=== PATIENT | female | born 1990 | race Caucasian/White ===

== ENCOUNTER 2016-11-03 09:23 | Emergency (ER) | payer OTHER ==
[2016-11-03] MEDS ORDERED: ACETAMINOPHEN TAB 500 MG TAB PO STA (09:53)
[2016-11-03] MEDS ORDERED: IBUPROFEN 600 MG TAB PO STA (09:53)
[2016-11-03] MEDS ORDERED: SODIUM CHLORIDE 0.9% 2,000 ML IV STA (09:53)
--- NOTE | 2016-11-03 10:02 | ED ---
Fever HPI - General Chief Complaint: Fever Stated Complaint: Right Flank Pain Time Seen by Provider: 11/03/16 09:48 Source: patient, RN notes reviewed Mode of arrival: ambulatory Limitations: no limitations - History of Present Illness Initial Comments: 26 yo female presents to the ER with cc of fever and abdominal pain. Patient states that last night show some abdominal cramping. Patient states and she started just feels very ill and have a mild fever. Patient states he has noticed some burning with urination. Patient states she does have a history of a renal cysts and has had an infection and therefore that lead to sepsis. Patient states she was concerned due to her low-grade fever with abdominal pain with the dysuria so she thought that she should be evaluated. Patient denies any nausea or vomiting with this. Patient denies any cough cold diagnosed. Patient states that she was concerned due to the abdominal that she should be evaluated. Patient denies any recent shortness of breath, chest pain, back pain , nausea vomiting, numbness or tingling, hematuria, constipation or diarrhea, headaches or visual changes, or any other current symptoms. - Related Data Home Medications Medication Instructions Recorded Confirmed Dextroamphetamine/Amphetamine 20 mg PO BID 11/03/16 11/03/16 [Adderall] Previous Rx's Medication Instructions Recorded Cephalexin [Keflex] 500 mg PO Q6HR #40 cap 11/03/16 Allergies Allergy/AdvReac Type Severity Reaction Status Date / Time No Known Allergies Allergy Verified 11/03/16 10:51 Review of Systems ROS Statement: Those systems with pertinent positive or pertinent negative responses have been documented in the HPI. ROS Other: All systems not noted in ROS Statement are negative. Past Medical History Additional Past Medical History / Comment(s): kidney infection, kidney mass, anemia, uterus idenomyosis History of Any Multi-Drug Resistant Organisms: None Reported Past Surgical History: No Surgical Hx Reported Past Psychological History: ADD/ADHD Smoking Status: Never smoker Past Alcohol Use History: Occasional Past Drug Use History: None Reported General Exam - General Exam Comments Initial Comments: General: The patient is awake and alert, in no distress, and does not appear acutely ill. Eye: Pupils are equal, round and reactive to light, extra-ocular movements are intact; there is normal conjunctiva bilaterally. No signs of icterus. Ears, nose, mouth and throat: There are moist mucous membranes. Neck: The neck is supple, there is no tenderness. Cardiovascular: There is a regular rate and rhythm. No murmur, rub or gallop is appreciated. Respiratory: Lungs are clear to auscultation, respirations are non-labored, breath sounds are equal. No wheezes, stridor, rales, or rhonchi. Gastrointestinal: Soft, non-distended, minimal right-sided abdomen without masses or organomegaly noted. There is no rebound or guarding present. Bilateral CVA tenderness. Bowel sounds are unremarkable. Back: There is no tenderness to palpation in the midline. There is no obvious deformity. No rashes noted. Musculoskeletal: Normal ROM, no tenderness, There is no pedal edema. There is no calf tenderness or swelling. Sensation intact. Pulses equal bilaterally 2+. Neurological: CN II-XII intact, There are no obvious motor or sensory deficits. Coordination appears grossly intact. Speech is normal. Skin: Skin is warm and dry and no rashes or lesions are noted. Psychiatric: Cooperative, appropriate mood & affect, normal judgment. Limitations: no limitations Course Vital Signs 11/03/16 11/03/16 09:30 11:12 Temperature 98.8 F 97.7 F Pulse Rate 83 80 Respiratory 20 18 Rate Blood Pressure 107/64 108/64 O2 Sat by Pulse 99 100 Oximetry Medical Decision Making - Medical Decision Making 26-year-old male presents for low-grade fever and burning seen with urination. This time patient's urine is positive for an infection on initial evaluation. This time there is suspicion for pyloric due to the fact of the patient's pain. Patient has had no nausea vomiting patient is afebrile here in the emergency department. At this time we did discuss discharged home. We did give her IV antibiotics prior to discharge and was started on Keflex for home. We did discuss follow-up with her doctor and return parameters and all questions she stated she understood and she agrees with the plan. She will be discharged. - Lab Data Result diagrams: 11/03/16 09:59 11/03/16 09:59 Lab Results 11/03/16 11/03/16 11/03/16 Range/Units 09:38 09:38 09:59 WBC (3.8-10.6) k/uL RBC (3.80-5.40) m/uL Hgb (11.4-16.0) gm/dL Hct (34.0-46.0) % MCV (80.0-100.0) fL MCH (25.0-35.0) pg MCHC (31.0-37.0) g/dL RDW (11.5-15.5) % Plt Count (150-450) k/uL Neutrophils % % Lymphocytes % % Monocytes % % Eosinophils % % Basophils % % Neutrophils # (1.3-7.7) k/uL Lymphocytes # (1.0-4.8) k/uL Monocytes # (0-1.0) k/uL Eosinophils # (0-0.7) k/uL Basophils # (0-0.2) k/uL Sodium 139 (137-145) mmol/L Potassium 3.7 (3.5-5.1) mmol/L Chloride 107 (98-107) mmol/L Carbon Dioxide 22 (22-30) mmol/L Anion Gap 10 mmol/L BUN 5 L (7-17) mg/dL Creatinine 0.68 (0.52-1.04) mg/dL Est GFR (MDRD) Af Amer >60 (>60 ml/min/1.73 sqM) Est GFR (MDRD) Non-Af >60 (>60 ml/min/1.73 sqM) Glucose 89 (74-99) mg/dL Plasma Lactic Acid Eduardo (0.7-2.0) mmol/L Calcium 8.8 (8.4-10.2) mg/dL Total Bilirubin 0.6 (0.2-1.3) mg/dL AST 17 (14-36) U/L ALT 21 (9-52) U/L Alkaline Phosphatase 45 (38-126) U/L Total Protein 6.4 (6.3-8.2) g/dL Albumin 3.7 (3.5-5.0) g/dL Amylase 32 (30-110) U/L Lipase 92 (23-300) U/L Urine Color Yellow Urine Appearance Cloudy H (Clear) Urine pH 5.5 (5.0-8.0) Ur Specific [place] 1.010 (1.001-1.035) Urine Protein 1+ H (Negative) Urine Glucose (UA) Negative (Negative) Urine Ketones Negative (Negative) Urine Blood Moderate H (Negative) Urine Nitrite Positive H (Negative) Urine Bilirubin Negative (Negative) Urine Urobilinogen <2.0 (<2.0) mg/dL Ur Leukocyte Esterase Large H (Negative) Urine RBC 17 H (0-5) /hpf Urine WBC >182 H (0-5) /hpf Urine WBC Clumps Few H (None) /hpf Ur Squamous Epith Cells 2 (0-4) /hpf Urine Bacteria Rare H (None) /hpf Urine HCG, Qual Not Detected (Not Detectd) 11/03/16 11/03/16 Range/Units 09:59 09:59 WBC 12.8 H (3.8-10.6) k/uL RBC 4.09 (3.80-5.40) m/uL Hgb 12.7 (11.4-16.0) gm/dL Hct 36.7 (34.0-46.0) % MCV 89.5 (80.0-100.0) fL MCH 31.0 (25.0-35.0) pg MCHC 34.6 (31.0-37.0) g/dL RDW 12.3 (11.5-15.5) % Plt Count 228 (150-450) k/uL Neutrophils % 84 % Lymphocytes % 10 % Monocytes % 4 % Eosinophils % 1 % Basophils % 0 % Neutrophils # 10.7 H (1.3-7.7) k/uL Lymphocytes # 1.3 (1.0-4.8) k/uL Monocytes # 0.6 (0-1.0) k/uL Eosinophils # 0.1 (0-0.7) k/uL Basophils # 0.0 (0-0.2) k/uL Sodium (137-145) mmol/L Potassium (3.5-5.1) mmol/L Chloride (98-107) mmol/L Carbon Dioxide (22-30) mmol/L Anion Gap mmol/L BUN (7-17) mg/dL Creatinine (0.52-1.04) mg/dL Est GFR (MDRD) Af Amer (>60 ml/min/1.73 sqM) Est GFR (MDRD) Non-Af (>60 ml/min/1.73 sqM) Glucose (74-99) mg/dL Plasma Lactic Acid Eduardo 0.9 (0.7-2.0) mmol/L Calcium (8.4-10.2) mg/dL Total Bilirubin (0.2-1.3) mg/dL AST (14-36) U/L ALT (9-52) U/L Alkaline Phosphatase (38-126) U/L Total Protein (6.3-8.2) g/dL Albumin (3.5-5.0) g/dL Amylase (30-110) U/L Lipase (23-300) U/L Urine Color Urine Appearance (Clear) Urine pH (5.0-8.0) Ur Specific [place] (1.001-1.035) Urine Protein (Negative) Urine Glucose (UA) (Negative) Urine Ketones (Negative) Urine Blood (Negative) Urine Nitrite (Negative) Urine Bilirubin (Negative) Urine Urobilinogen (<2.0) mg/dL Ur Leukocyte Esterase (Negative) Urine RBC (0-5) /hpf Urine WBC (0-5) /hpf Urine WBC Clumps (None) /hpf Ur Squamous Epith Cells (0-4) /hpf Urine Bacteria (None) /hpf Urine HCG, Qual (Not Detectd) - Radiology Data Radiology results: report reviewed, image reviewed Disposition Clinical Impression: Left renal mass, Pyelonephritis Disposition: HOME SELF-CARE Condition: Stable Instructions: Kidney Infection (ED) Additional Instructions: Please use medication as discussed. Please follow up with family doctor if symptoms have not improved over the next two days. Please return to the emergency room if your symptoms increase or worsen or for any other concerns. Prescriptions: Cephalexin [Keflex] 500 mg PO Q6HR #40 cap Referrals: Wilfredo Simons MD [Primary Care Provider] - 1-2 days Time of Disposition: 12:07
[2016-11-03 10:13] LABS: Appearance,Urine Cloudy (Clear); Bacteria,Urine Rare /hpf; Bilirubin,Urine Negative (Negative); Glucose,Urine (UA) Negative (Negative); Ketones,Urine Negative (Negative); Leukocyte Esterase,Urine Large (Negative); Nitrite,Urine Positive (Negative); PH, Urine 5.5 (5.0-8.0); Particle Count 6476; Protein,Urine 1+ (Negative); RBC,Urine 17 /hpf (0-5); Squamous Epithelial Cell,Urine 2 /hpf (0-4); UA Billing (MACRO vs. MICRO) MICRO; Urobilinogen,Urine <2.0 mg/dL (<2.0); WBC,Urine >182 /hpf (0-5)
[2016-11-03 10:13] LABS: Basophils % (A) 0 %; CH 30.6; CHCM 34.3; Eosinophils # (A) 0.1 k/uL (0-0.7); Eosinophils % (A) 1 %; HCT 36.7 % (34.0-46.0); HDW 2.36; HGB 12.7 gm/dL (11.4-16.0); Luc # (Auto) 0.08; Luc % (Auto) 1; Lymphocytes # (A) 1.3 k/uL (1.0-4.8); Lymphocytes % (A) 10 %; MCHC 34.6 g/dL (31.0-37.0); MCV 89.5 fL (80.0-100.0); Mean Platelet Volume 7.5; Monocytes # (A) 0.6 k/uL (0-1.0); Monocytes % (A) 4 %; Neutrophils # (A) 10.7 k/uL (1.3-7.7); Neutrophils % (A) 84 %; RBC 4.09 m/uL (3.80-5.40); RDW 12.3 % (11.5-15.5); WBC 12.8 k/uL (3.8-10.6); WBC (Perox) 12.09
[2016-11-03 10:25] LABS: ALT 21 U/L (9-52); AST 17 U/L (14-36); Alkaline Phosphatase 45 U/L (38-126); Amylase 32 U/L (30-110); Anion Gap 10 mmol/L; Blood Urea Nitrogen 5 mg/dL (7-17); Calcium 8.8 mg/dL (8.4-10.2); Carbon Dioxide 22 mmol/L (22-30); Chloride 107 mmol/L (98-107); Glucose 89 mg/dL (74-99); Non-African American GFR(MDRD) >60 (>60 ml/min/1.73 sqM); Potassium 3.7 mmol/L (3.5-5.1); Sodium 139 mmol/L (137-145); Total Bilirubin 0.6 mg/dL (0.2-1.3); Total Protein 6.4 g/dL (6.3-8.2)
--- NOTE | 2016-11-03 10:30 | XR ---
2 view abdomen HISTORY: Right flank pain 2 views of the abdomen, no comparisons There is a slight spinal curvature. Lung bases are clear. No bowel obstruction or pneumoperitoneum. C alcifications within the pelvis may be vascular in the left. IMPRESSION: Nonobstructive bowel gas pattern.
--- NOTE | 2016-11-03 11:06 | US ---
EXAMINATION TYPE: US kidneys/renal and bladder DATE OF EXAM: 11/03/2016 10:33 AM COMPARISON: NONE CLINICAL HISTORY: Bilat flank pain. fever. EXAM MEASUREMENTS: Right Kidney: 11.4 x 4.7 x 4.0 cm Left Kidney: 10.2 x 4.8 x 4.8 cm Post Void Residual Volume: Bladder insufficiently full. Right Kidney: wnl Left Kidney: wnl, echogenic focus in renal cortex, upper pole 0.5 cm Bladder: Bladder insufficiently full. Bilateral Jets seen: Bladder insufficiently full. Normal Post Void Residual: Bladder insufficiently full. There is no evidence for hydronephrosis at this point in time. No nephrolithiasis is seen. No ciro s are identified. . Cortical medullary differentiation is maintained. 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
[2016-11-03] MEDS ORDERED: HYDROmorphone 1 MG/ML 1 ML SYRINGE IVP STA (11:12)
[2016-11-03 11:13] VITALS: RESP 18
[2016-11-03 12:39] VITALS: BP 111/59; PULSE 79; TEMP 98.5
== END 2016-11-03 12:46 | disposition home or self-care (01) ==
LOC: EC 09:23
DX: N12 Tubulo-interstitial nephritis, not specified as acute or chronic (principal); N28.89 Other specified disorders of kidney and ureter; R10.9 Unspecified abdominal pain; F90.9 Attention-deficit hyperactivity disorder, unspecified type; Z79.899 Other long term (current) drug therapy
CPT/HCPCS: 36415; 80053; 82150; 83605; 83690; 85025; 81001; 81025; 87086; 74020; 76770; 99284; 96365; 96375; 96361 ×2; J0696; J1170; 87077; 87186

== ENCOUNTER 2016-11-03 20:28 | Inpatient (IN) | payer OTHER ==
[2016-11-03] MEDS ORDERED: ONDANSETRON 4 MG/2 ML VIAL IVP STA (21:11)
[2016-11-03] MEDS ORDERED: ACETAMINOPHEN TAB 500 MG TAB PO STA (21:13)
[2016-11-03] MEDS ORDERED: SODIUM CHLORIDE 0.9% 1,000 ML IV ONE (21:14)
[2016-11-03] MEDS ORDERED: ACETAMINOPHEN TAB 325 MG TAB PO PRN (21:19)
[2016-11-03] MEDS ORDERED: HYDROcodone/APAP 5-325MG 1 EACH TAB PO PRN (21:19)
[2016-11-03] MEDS ORDERED: NALOXONE 0.4 MG/ML 1 ML VIAL IV PRN (21:19)
--- NOTE | 2016-11-03 21:19 | ED ---
General Adult HPI - General Source: patient, RN notes reviewed Mode of arrival: ambulatory Limitations: no limitations <Jb Keen - Last Filed: 11/03/16 21:15> <Mark Pastrana - Last Filed: 11/03/16 21:21> - General Chief complaint: Urogenital Stated complaint: revisit UTI Time Seen by Provider: 11/03/16 20:49 - History of Present Illness Initial comments: 26-year-old female presents emergency Department chief complaint of UTI fever. Patient was seen here earlier today. Patient states she was told return if she developed fever. Patient has had a fever at home current temp 11.7. Patient has not had any Tylenol or Motrin since 2 PM. Patient states that she had some back pain yesterday has back pain at this time. Patient states she has a history of sepsis with Klebsiella admitted 1 year ago. Patient states that she also has some nausea this time. Denies any vomiting diarrhea constipation. Patient does admit to some dysuria. (Jb Keen) - Related Data Home Medications Medication Instructions Recorded Confirmed Acetaminophen Tab [Tylenol Tab] 1,000 mg PO Q6HR PRN 11/03/16 11/03/16 Dextroamphetamine/Amphetamine 20 mg PO BID 11/03/16 11/03/16 [Adderall] Previous Rx's Medication Instructions Recorded Cephalexin [Keflex] 500 mg PO Q6HR #40 cap 11/03/16 Allergies Allergy/AdvReac Type Severity Reaction Status Date / Time No Known Allergies Allergy Verified 11/03/16 20:58 Review of Systems ROS Other: All systems not noted in ROS Statement are negative. <Jb Keen - Last Filed: 11/03/16 21:15> ROS Other: All systems not noted in ROS Statement are negative. <Mark Pastrana - Last Filed: 11/03/16 21:21> ROS Statement: Those systems with pertinent positive or pertinent negative responses have been documented in the HPI. Past Medical History Additional Past Medical History / Comment(s): kidney infection, kidney mass, anemia, uterus idenomyosis History of Any Multi-Drug Resistant Organisms: None Reported Past Surgical History: No Surgical Hx Reported Past Psychological History: ADD/ADHD Smoking Status: Never smoker Past Alcohol Use History: Occasional Past Drug Use History: None Reported <Jb Keen - Last Filed: 11/03/16 21:15> General Exam Limitations: no limitations General appearance: alert, in no apparent distress Neck exam: Present: normal inspection. Absent: tenderness, meningismus, lymphadenopathy Respiratory exam: Present: normal lung sounds bilaterally. Absent: respiratory distress, wheezes, rales, rhonchi, stridor Cardiovascular Exam: Present: normal rhythm, tachycardia, normal heart sounds. Absent: systolic murmur, diastolic murmur, rubs, gallop, clicks GI/Abdominal exam: Present: soft, tenderness (Moderate suprapubic), normal bowel sounds. Absent: distended, guarding, rebound, rigid Back exam: Present: CVA tenderness (R), CVA tenderness (L) Neurological exam: Present: alert, oriented X3, CN II-XII intact Skin exam: Present: warm, dry, intact, normal color. Absent: rash <Jb Keen - Last Filed: 11/03/16 21:15> Medical Decision Making <Jb Keen - Last Filed: 11/03/16 21:15> <Mark Pastrana - Last Filed: 11/03/16 21:21> - Medical Decision Making 26-year-old female presented emergency department for UTI fever. Patient did have an ultrasound earlier today showed a acute abnormality's. Patient most likely has pyelonephritis with sepsis. Patient was started on Rocephin IV fluids. (Jb Keen) Patient's case discussed with Erika IRVIN sponge buffer for Dr. Arrieta. Patient will be admitted with diagnosis of pyelonephritis and continued on Rocephin. Dr. Pastrana (Mark Pastrana) Disposition Time of Disposition: 21:18 <Jb Keen - Last Filed: 11/03/16 21:15> <Mark Pastrana - Last Filed: 11/03/16 21:21> Clinical Impression: Pyelonephritis, Sepsis Referrals: Wilfredo Simons MD [Primary Care Provider] - 1-2 days
[2016-11-03] MEDS ORDERED: MORPHINE SULFATE 4 MG/ML SYRINGE IVP STA (21:25)
[2016-11-03] MEDS ORDERED: MORPHINE SULFATE 2 MG/ML SYRINGE IVP STA (21:30)
[2016-11-03 21:37] LABS: Basophils % (A) 0 %; CH 30.4; Eosinophils # (A) 0.1 k/uL (0-0.7); Eosinophils % (A) 1 %; HCT 35.8 % (34.0-46.0); HDW 2.24; HGB 12.1 gm/dL (11.4-16.0); Luc % (Auto) 1; Lymphocytes # (A) 0.8 k/uL (1.0-4.8); Lymphocytes % (A) 5 %; MCH 31.3 pg (25.0-35.0); MCHC 33.8 g/dL (31.0-37.0); MCV 92.5 fL (80.0-100.0); Mean Platelet Volume 7.4; Monocytes # (A) 0.9 k/uL (0-1.0); Monocytes % (A) 6 %; Neutrophils # (A) 12.5 k/uL (1.3-7.7); Neutrophils % (A) 87 %; RBC 3.87 m/uL (3.80-5.40); RDW 12.6 % (11.5-15.5); WBC 14.3 k/uL (3.8-10.6); WBC (Perox) 15.03
[2016-11-03 21:39] LABS: Appearance,Urine Cloudy (Clear); Bacteria,Urine Rare /hpf; Bilirubin,Urine Negative (Negative); Glucose,Urine (UA) Negative (Negative); Ketones,Urine Negative (Negative); Leukocyte Esterase,Urine Large (Negative); Mucus,Urine Rare /hpf; Nitrite,Urine Negative (Negative); PH, Urine 5.5 (5.0-8.0); Particle Count 3067; Protein,Urine Trace (Negative); RBC,Urine 7 /hpf (0-5); Specific Gravity,Urine 1.009 (1.001-1.035); Squamous Epithelial Cell,Urine 2 /hpf (0-4); UA Billing (MACRO vs. MICRO) MICRO; Urobilinogen,Urine <2.0 mg/dL (<2.0); WBC,Urine 70 /hpf (0-5)
[2016-11-03 21:49] LABS: ALT 32 U/L (9-52); AST 20 U/L (14-36); Alkaline Phosphatase 51 U/L (38-126); Amylase <30 U/L (30-110); Anion Gap 8 mmol/L; Blood Urea Nitrogen 4 mg/dL (7-17); Calcium 8.5 mg/dL (8.4-10.2); Carbon Dioxide 23 mmol/L (22-30); Chloride 107 mmol/L (98-107); Glucose 97 mg/dL (74-99); Non-African American GFR(MDRD) >60 (>60 ml/min/1.73 sqM); Potassium 3.5 mmol/L (3.5-5.1); Sodium 138 mmol/L (137-145); Total Bilirubin 0.4 mg/dL (0.2-1.3); Total Protein 5.9 g/dL (6.3-8.2)
[2016-11-03] MEDS: MORPHINE SULFATE 4 MG/ML SYRINGE IV PRN (22:42)
[2016-11-03] MEDS: SODIUM CHLORIDE 0.9% 1,000 ML IV SCH (22:42)
[2016-11-04 01:00] VITALS: BMI 19.1
[2016-11-04] MEDS: MORPHINE SULFATE 4 MG/ML SYRINGE IV PRN ×6 (02:08→23:19)
[2016-11-04] MEDS: ONDANSETRON 4 MG/2 ML VIAL IVP PRN ×3 (05:28→23:26)
[2016-11-04] MEDS: SODIUM CHLORIDE 0.9% 1,000 ML IV SCH ×2 (08:13→19:00)
[2016-11-04] MEDS ORDERED: NON-FORMULARY DRUG (Dextroamphetamine/Amphetamine [Adderall] 20 MG) PO SCH (09:00)
[2016-11-04 09:49] LABS: CH 30.2; CHCM 32.1; HCT 30.7 % (34.0-46.0); HDW 2.23; MCH 30.7 pg (25.0-35.0); MCHC 32.4 g/dL (31.0-37.0); MCV 94.7 fL (80.0-100.0); Mean Platelet Volume 7.6; RBC 3.24 m/uL (3.80-5.40); RDW 12.7 % (11.5-15.5); WBC 9.3 k/uL (3.8-10.6)
[2016-11-04 10:09] LABS: HGB 9.9 gm/dL (11.4-16.0)
[2016-11-04 10:12] LABS: Anion Gap 7 mmol/L; Blood Urea Nitrogen 4 mg/dL (7-17); Calcium 7.8 mg/dL (8.4-10.2); Carbon Dioxide 22 mmol/L (22-30); Chloride 113 mmol/L (98-107); Glucose 77 mg/dL (74-99); Non-African American GFR(MDRD) >60 (>60 ml/min/1.73 sqM); Potassium 3.3 mmol/L (3.5-5.1); Sodium 142 mmol/L (137-145)
[2016-11-04] MEDS: ENOXAPARIN 40 MG/0.4 ML SYRINGE SQ SCH (10:47)
--- NOTE | 2016-11-04 17:37 | HP ---
DATE OF ADMISSION: 11/03/2016 PRESENTING COMPLAINT: Fever, flank pain. HISTORY OF PRESENTING COMPLAINT: This is a very pleasant 26-year-old patient of Dr. Simons. Patient has a history of ADHD. Patient developed high fevers and flank pain yesterday; lower abdominal dullness, rundown, tired. Patient was admitted. Patient had a prior UTI. Patient was found to have rather infected-appearing urine. Admitted for pyelonephritis with a white count. Appetite is down. Tired and rundown. Patient is sexually active but denies any vaginal discharge. REVIEW OF SYSTEMS: CONSTITUTIONAL: Fever. Weak, tired. HEENT: None. RESPIRATORY: None. CARDIOVASCULAR: None. GASTROINTESTINAL: None. GENITOURINARY: Decreased urine output. MUSCULOSKELETAL: None. DERMATOLOGIC: None. HEMATOLOGIC: None. LYMPHATICS: None. PSYCHIATRY: None. NEUROLOGICAL: None. PAST MEDICAL HISTORY: 1. ADHD. 2. Kidney infection. PAST SURGICAL HISTORY: Cyst removed from the wrist. SOCIAL HISTORY: Lives with her mother. Works in a restaurant. Does not smoke. Does not drink alcohol. Sexually active with her boyfriend for over a year. Denies use of recreational drugs. FAMILY HISTORY: Reviewed; non-contributory to presentation. HOME MEDICATIONS: 1. Adderall 20 mg b.i.d. p.r.n. 2. Keflex 500 mg q.6. ALLERGIES: NONE. PHYSICAL EXAMINATION: VITAL SIGNS ON PRESENTATION: Temperature 101.7, pulse 103, respiration 20, blood pressure 120/71, pulse ox 98% on room air. GENERAL APPEARANCE: Average build. Lying in bed, tired-appearing. EYES: Pupils equal. Conjunctivae normal. HEENT: Oral cavity normal. NECK: JVD not raised. Mass not palpable. RESPIRATORY: Effort normal. Lungs are clear. CARDIOVASCULAR: First and second sounds normal. No edema. ABDOMEN: Soft, nontender. Liver and spleen not palpable. Patient just received a morphine injection. LYMPHATICS: No lymph node palpable in neck or axillae. PSYCHIATRY: Alert and oriented x3. Mood and affect normal. NEUROLOGICAL: Pupils equal. Cranial nerves grossly intact. Power and sensation grossly intact. INVESTIGATIONS: White count 14.3, hemoglobin 12.1. Potassium 3.5. UA positive for leukocyte esterase, WBC. Urine micro is pending. ASSESSMENT: 1. Acute pyelonephritis with sepsis, present on admission, with evidence of associated urinary tract infection. 2. Attention deficit hyperactivity disorder. 3. Leukocytosis from above. PLAN: Patient was put on IV ceftriaxone, IV fluids, Lovenox for DVT prophylaxis. Care was discussed with the patient. Encouraged to be out of bed.
[2016-11-05] MEDS: MORPHINE SULFATE 4 MG/ML SYRINGE IV PRN ×2 (03:48→08:34)
[2016-11-05] MEDS: SODIUM CHLORIDE 0.9% 1,000 ML IV SCH ×2 (03:55→13:59)
[2016-11-05] MEDS: IBUPROFEN 600 MG TAB PO PRN ×2 (05:45→13:02)
[2016-11-05] MEDS: ONDANSETRON 4 MG/2 ML VIAL IVP PRN (08:26)
[2016-11-05] MEDS: ENOXAPARIN 40 MG/0.4 ML SYRINGE SQ SCH (10:25)
[2016-11-05 10:58] LABS: Anion Gap 5 mmol/L; Blood Urea Nitrogen <2 mg/dL (7-17); Carbon Dioxide 25 mmol/L (22-30); Chloride 110 mmol/L (98-107); Glucose 86 mg/dL (74-99); Non-African American GFR(MDRD) >60 (>60 ml/min/1.73 sqM); Potassium 3.6 mmol/L (3.5-5.1); Sodium 140 mmol/L (137-145)
[2016-11-05 12:11] VITALS: BP 105/69; PULSE 58; RESP 16; TEMP 98.1
[2016-11-05] MEDS ORDERED: LACTULOSE 20 GM/30 ML CUP PO ONE (12:56)
--- NOTE | 2016-11-06 09:15 | DS ---
DATE OF ADMISSION: 11/03/2016 DATE OF DISCHARGE: 11/05/2016 FINAL DIAGNOSES: 1. Acute pyelonephritis with sepsis, present on admission, with evidence associated urinary tract infection. 2. Attention deficit hyperactivity disorder. 3. Leukocytosis from above. CONSULTATIONS: None. HOSPITAL COURSE: This is a patient who presented to the emergency department with complaints of high fever and flank pain, lower abdominal pain, feeling run down and tired. Patient was found to have a rather infected UTI. Patient was admitted for pyelonephritis. Antibiotics started, IV fluids provided. Patient's symptoms improved. Patient is ambulatory in the room and in the hallway, tolerating her diet, moving her bowels and as such, patient is ready to be discharged. On exam: ABDOMEN: Soft, mildly tender, just above the pubic bone. Some right and left flank tenderness noted, more so on the right than the left. CARDIOVASCULAR: First and second sounds noted. No edema. LUNG: Sounds clear to auscultation. DISCHARGE MEDICATIONS: 1. Dextroamphetamine/amphetamine Adderall 20 mg p.o. b.i.d. 2. Acetaminophen 500 mg p.o. q.6 hours p.r.n. 3. Ceftin 500 mg p.o. b.i.d. Follow-up with Dr. Simons in 3 days. DISCHARGE TIME: More than 35 minutes including discussion. Patient was seen and examined by nurse practitioner, Ila Leon, and all elements of the case discussed with attending, Dr. Arrieta.
--- NOTE | 2016-11-06 23:28 | DS ---
DATE OF ADMISSION: 11/03/2016 DATE OF DISCHARGE: 11/05/2016 FINAL DIAGNOSES: Acute pyelonephritis sepsis and urinary tract infection. HOSPITAL COURSE: This patient presented with above, given antibiotics to which she responded very well. The patient microbiology came back to be negative. By the time of discharge, patient is afebrile, normal white count. ABDOMEN: Soft, nontender. Liver and spleen not palpable and the patient started to eat. Patient was told to follow with the family doctor upon discharge. On Ceftin. This patient was seen and examined by me on 11/05/2016. I reviewed the discharge summary of my nurse practitioner, Ms. Leon, discussed and agreed with the same. More details in her discharge summary.
== END 2016-11-05 16:45 | disposition home or self-care (01) | DRG 872 ==
LOC: EC 20:28 → OBSVTOIN 21:32 → 6PED 21:32 → INTOOBSV 21:32
PROVIDERS: ADMIT Hospitalist; ATTEND Hospitalist
DX: A41.9 Sepsis, unspecified organism (principal); N10 Acute pyelonephritis; F90.9 Attention-deficit hyperactivity disorder, unspecified type; R50.9 Fever, unspecified; R53.83 Other fatigue; D72.829 Elevated white blood cell count, unspecified; D64.9 Anemia, unspecified; R11.0 Nausea; R30.0 Dysuria; Z87.440 Personal history of urinary (tract) infections; Z79.899 Other long term (current) drug therapy; Z86.19 Personal history of other infectious and parasitic diseases; Z87.448 Personal history of other diseases of urinary system; Z87.42 Personal history of other diseases of the female genital tract
CPT/HCPCS: 36415; 74020; 76770; 80048; 80053; 81001; 81025; 82150; 83605; 83690; 85025; 85027; 87040; 87086; 96365; 96375; 99284

== ENCOUNTER 2016-12-22 21:55 | Emergency (ER) | payer OTHER ==
[2016-12-22 22:13] VITALS: TEMP 98.1
[2016-12-22] MEDS ORDERED: methylPREDNISolone SOD SUCCI 125 MG/2 ML VIAL IV STA (22:52)
[2016-12-22] MEDS ORDERED: SODIUM CHLORIDE 0.9% 500 ML IV STA (22:52)
[2016-12-22] MEDS ORDERED: FAMOTIDINE 20 MG/2 ML VIAL IV STA (22:52)
[2016-12-22] MEDS ORDERED: SODIUM CHLORIDE 0.9% 1,000 ML IV STA (22:52)
[2016-12-22] MEDS ORDERED: LORATADINE 10 MG TAB PO STA (22:55)
--- NOTE | 2016-12-22 23:01 | ED ---
General Adult HPI - General Chief complaint: Skin/Abscess/Foreign Body Stated complaint: Rash Time Seen by Provider: 12/22/16 22:41 Source: patient Mode of arrival: ambulatory Limitations: no limitations - History of Present Illness Initial comments: 26 years old female presents with rash or hives all over, it started in her left upper extrimity She denies any shortness of breath she denies any tightness of the throat denies any fever no chills had rash on the hives have admitted to the upper back, other arm and lower extremities she is also concerned about her Chlamydia her partner was diagnosed with a CABG a few days ago though she herself has no symptoms she denies any vaginal discharge no fever no chills no pain in the abdomen - Related Data Home Medications Medication Instructions Recorded Confirmed Dextroamphetamine/Amphetamine 20 mg PO BID 11/03/16 12/22/16 [Adderall] Butalb/Acetaminophen/Caffeine 1 cap PO DAILY PRN 12/22/16 12/22/16 [Fioricet 50-300-40 mg Capsule] Ferrous Sulfate [Feosol] 325 mg PO DAILY 12/22/16 12/22/16 Pnv,Calcium 72/Iron/Folic Acid 1 tab PO DAILY 12/22/16 12/22/16 [ Plus Tablet] Previous Rx's Medication Instructions Recorded predniSONE 50 mg PO DAILY #5 tablet 12/23/16 Allergies Allergy/AdvReac Type Severity Reaction Status Date / Time No Known Allergies Allergy Verified 12/22/16 22:26 Review of Systems ROS Statement: Those systems with pertinent positive or pertinent negative responses have been documented in the HPI. ROS Other: All systems not noted in ROS Statement are negative. Past Medical History Additional Past Medical History / Comment(s): kidney infection, kidney mass, anemia, uterus idenomyosis History of Any Multi-Drug Resistant Organisms: None Reported Past Surgical History: No Surgical Hx Reported Additional Past Surgical History / Comment(s): Cyst removed on wrist in 2009. Past Anesthesia/Blood Transfusion Reactions: No Reported Reaction Past Psychological History: ADD/ADHD Smoking Status: Never smoker Past Alcohol Use History: Occasional Past Drug Use History: None Reported - Past Family History Mother Family Medical History: No Reported History General Exam - General Exam Comments Initial Comments: General: The patient is awake and alert, in no distress, and does not appear acutely ill. Skin: Skin is warm and dry is no hives over the both upper extremities or upper back and the both legs Eye: Pupils are equal, round and reactive to light, extra-ocular movements are intact; there is normal conjunctiva bilaterally. Ears, nose, mouth and throat: There are moist mucous membranes and no oral lesions. Neck: The neck is supple, there is no tenderness or JVD. Cardiovascular: There is a regular rate and rhythm. No murmur, rub or gallop is appreciated. Respiratory: To auscultation bilateral, no wheezing no rhonchi no distress respiratory dozier noticed Gastrointestinal: Soft, non-distended, non-tender abdomen without masses or organomegaly noted. There is no rebound or guarding present. Bowel sounds are unremarkable. Back: There is no tenderness to palpation in the midline. There is no obvious deformity. Musculoskeletal: Normal ROM, no tenderness, There is no pedal edema. There is no calf tenderness or swelling. No cords were appreciated. Neurological: CN II-XII intact, Cranial nerves III through XII are intact. There are no obvious motor or sensory deficits. Coordination appears grossly intact. Speech is normal. Psychiatric: Cooperative, appropriate mood & affect, normal judgment. Limitations: no limitations Course Vital Signs 12/22/16 12/22/16 22:09 23:48 Temperature 98.1 F 98.1 F Pulse Rate 80 71 Respiratory 16 18 Rate Blood Pressure 141/73 98/78 O2 Sat by Pulse 100 99 Oximetry Urine sample was sent for the chlamydia She Perhaps an IV and Solu-Medrol along with the Claritin and She Is Still Itching Quite Bad and She Said She Would Prefer Benadryl and She Agreed That She Would Not Drive Her Mom will come and will drive her., - Reevaluation(s) Reevaluation #1: 12/23/16 00:54 Is reassessed at term 1245 while she is feeling no better she was to call she she'll be gone home on a prednisone 50 mg once daily Reevaluation #2: 12/23/16 00:55 Device to take Claritin 10 mg by mouth daily for 10 days as well as Zantac 150 mg twice daily for next 10 days as well and return to the ER if symptoms get worse 12/23/16 00:55 Media testing was sent as well as for gonorrhea and no once that reports were advised to get hold of the patient will let her know Medical Decision Making - Lab Data Result diagrams: 12/22/16 23:06 12/22/16 23:06 Lab Results 12/22/16 12/22/16 Range/Units 23:06 23:06 WBC 7.5 (3.8-10.6) k/uL RBC 4.22 (3.80-5.40) m/uL Hgb 13.3 D (11.4-16.0) gm/dL Hct 38.9 (34.0-46.0) % MCV 92.1 (80.0-100.0) fL MCH 31.5 (25.0-35.0) pg MCHC 34.3 (31.0-37.0) g/dL RDW 13.0 (11.5-15.5) % Plt Count 305 (150-450) k/uL Neutrophils % 69 % Lymphocytes % 22 % Monocytes % 4 % Eosinophils % 2 % Basophils % 1 % Neutrophils # 5.2 (1.3-7.7) k/uL Lymphocytes # 1.7 (1.0-4.8) k/uL Monocytes # 0.3 (0-1.0) k/uL Eosinophils # 0.1 (0-0.7) k/uL Basophils # 0.0 (0-0.2) k/uL Sodium 140 (137-145) mmol/L Potassium 3.6 (3.5-5.1) mmol/L Chloride 106 (98-107) mmol/L Carbon Dioxide 23 (22-30) mmol/L Anion Gap 11 mmol/L BUN 19 H (7-17) mg/dL Creatinine 0.80 (0.52-1.04) mg/dL Est GFR (MDRD) Af Amer >60 (>60 ml/min/1.73 sqM) Est GFR (MDRD) Non-Af >60 (>60 ml/min/1.73 sqM) Glucose 84 (74-99) mg/dL Calcium 9.1 (8.4-10.2) mg/dL Total Bilirubin 0.2 (0.2-1.3) mg/dL AST 29 (14-36) U/L ALT 31 (9-52) U/L Alkaline Phosphatase 52 (38-126) U/L Total Protein 6.8 (6.3-8.2) g/dL Albumin 4.4 (3.5-5.0) g/dL Disposition Clinical Impression: Allergic reaction, Screening for chlamydial disease Disposition: HOME SELF-CARE Prescriptions: predniSONE 50 mg PO DAILY #5 tablet Referrals: Wilfredo Simons MD [Primary Care Provider] - 1-2 days
[2016-12-22 23:30] LABS: ALT 31 U/L (9-52); AST 29 U/L (14-36); Alkaline Phosphatase 52 U/L (38-126); Anion Gap 11 mmol/L; Blood Urea Nitrogen 19 mg/dL (7-17); Calcium 9.1 mg/dL (8.4-10.2); Carbon Dioxide 23 mmol/L (22-30); Chloride 106 mmol/L (98-107); Glucose 84 mg/dL (74-99); Non-African American GFR(MDRD) >60 (>60 ml/min/1.73 sqM); Potassium 3.6 mmol/L (3.5-5.1); Sodium 140 mmol/L (137-145); Total Bilirubin 0.2 mg/dL (0.2-1.3); Total Protein 6.8 g/dL (6.3-8.2)
[2016-12-22 23:36] LABS: Basophils % (A) 1 %; CH 30.4; CHCM 33.1; Eosinophils # (A) 0.1 k/uL (0-0.7); Eosinophils % (A) 2 %; HCT 38.9 % (34.0-46.0); HDW 2.31; Luc # (Auto) 0.14; Luc % (Auto) 2; Lymphocytes # (A) 1.7 k/uL (1.0-4.8); Lymphocytes % (A) 22 %; MCH 31.5 pg (25.0-35.0); MCHC 34.3 g/dL (31.0-37.0); MCV 92.1 fL (80.0-100.0); Mean Platelet Volume 7.3; Monocytes # (A) 0.3 k/uL (0-1.0); Monocytes % (A) 4 %; Neutrophils # (A) 5.2 k/uL (1.3-7.7); Neutrophils % (A) 69 %; RBC 4.22 m/uL (3.80-5.40); WBC 7.5 k/uL (3.8-10.6); WBC (Perox) 7.56
[2016-12-22 23:41] LABS: HGB 13.3 gm/dL (11.4-16.0)
[2016-12-22 23:50] VITALS: RESP 18
[2016-12-22] MEDS ORDERED: diphenhydrAMINE 50 MG/ML 1 ML VIAL IVP STA (23:50)
[2016-12-22] MEDS ORDERED: EPINEPHrine 1 MG/ML 1 ML AMP IM STA (23:50)
[2016-12-23 01:12] VITALS: BP 110/55; PULSE 72
== END 2016-12-23 01:13 | disposition home or self-care (01) ==
LOC: EC 21:55
DX: T78.40XA Allergy, unspecified, initial encounter (principal); Z11.3 Encounter for screening for infections with a predominantly sexual mode of transmission; F90.9 Attention-deficit hyperactivity disorder, unspecified type; D64.9 Anemia, unspecified; Z79.899 Other long term (current) drug therapy
CPT/HCPCS: 36415; 80053; 85025; 87491; 87591; 99283; 96374; 96375 ×2; 96361 ×2; 96372; J0171; J1200; J2930